=== PATIENT | male | born 1955 | race Caucasian/White ===

== ENCOUNTER 2022-01-16 06:52 | Emergency (ER) | payer BC ==
[2022-01-16 07:48] LABS: HEMATOCRIT 45.4 % (35.4-49); HEMOGLOBIN 15.5 GM/dL (11.7-16.9); MCH 32.7 pg (25.7-33.7); MCHC 34.2 g/dl (32.0-35.9); MEAN CELL VOLUME 95.7 fl (80-96); PLATELET COUNT 211 10^3/uL (134-434); RBC 4.74 M/mm3 (4.00-5.60); WHITE BLOOD COUNT 7.6 K/mm3 (4.0-10.0)
[2022-01-16 07:57] LABS: INR 1.03 (0.83-1.09); PROTHROMBIN TIME (PATIENT) 11.8 SEC (9.7-13.0)
[2022-01-16 07:59] LABS: ACTIVATED PTT 29.2 SECONDS (25.2-36.5)
[2022-01-16 08:19] VITALS: TEMP 98.9; BMI 27.3
[2022-01-16 08:28] LABS: ALBUMIN 3.5 g/dl (3.4-5.0)
[2022-01-16 08:29] LABS: BLOOD UREA NITROGEN 15.6 mg/dL (7-18); MAGNESIUM 2.3 mg/dL (1.8-2.4)
[2022-01-16 08:32] LABS: CREATININE 0.9 mg/dL (0.55-1.3)
[2022-01-16 08:39] LABS: BILIRUBIN,TOTAL 0.8 mg/dL (0.2-1)
[2022-01-16 08:54] LABS: ANISOCYTOSIS 0; HELMET CELLS 0; HOWELL-JOLLY BODIES 0; MACROCYTOSIS 0; OVALOCYTE 0; ROULEAU 0; SICKELED CELLS 0; TARGET CELLS 0; TEAR DROP CELLS 0; TOXIC GRANULATION 0
[2022-01-16 11:36] VITALS: BP 128/88; PULSE 66
== END 2022-01-16 14:12 | disposition home or self-care (01) ==
LOC: JER 06:52
DX: R07.9 Chest pain, unspecified (principal)
CPT/HCPCS: 36415; 70491-TC; 71046-TC-FY; 71260-TC; 80053; 83735; 84484; 85025; 85610; 85730; 86850; 86900; 86901; 93005; 93010; 99285-25; Q9967